=== PATIENT | female | born 1995 | race Caucasian/White ===

== ENCOUNTER 2023-02-20 09:23 | Inpatient (IN) ==
--- NOTE | 2023-02-19 13:25 | Anesthesiology Consultation ---
Date of Service February 19, 2023 Assessment & Plan (1) Encounter for pre-operative examination: Chart Review Chart Review: entry level programmer initiated -Infectious Disease screening: Per PAT nursing assessment on 02/19/23. No known infectious disease contacts in past 10 days or current infectious disease symptoms. No recent travel outside the country. History Surgery Operation Date: 02/26/23 07:30 Proposed Procedures p Section in LD (Twins) - Nicki Badillo MD Height/Weight Height: 5 ft 3 in Weight: 95.254 kg Allergies Allergy/AdvReac Type Severity Reaction Status Date / Time ibuprofen Allergy Intermediate ANAPHYLAXIS Verified 02/19/23 13:02 Penicillins AdvReac Intermediate NAUSEA Verified 02/19/23 13:02 Medications Home Medications Medication Instructions Recorded Confirmed Last Taken guselkumab 100 mg/mL subcutaneous 100 mg subcut MONTHLY 02/04/21 02/19/23 Unknown syringe (Tremfya) levothyroxine 112 mcg tablet 224 mcg PO DAILYBB 02/04/21 02/19/23 Unknown Past Medical History Medical History Hx of papillary thyroid carcinoma dx'd 2017. s/p thyroidectomy Postsurgical hypothyroidism Past Surgical History Surgical History History of total thyroidectomy History of wisdom tooth extraction S/P thyroid biopsy Social History Smoking Status: Never smoker Do You Dip or Chew Tobacco: No Hx Alcohol Use: No Hx Substance Use: No substance use type: does not use Testing Laboratory Results 02/13/23= WBC: 10.51 H/H: 11.0/34.9 PLATELETS: 185 CREATININE: 0.6 TSH: 0.04 FREE T4: 1.2
[~2023-02-20 09:23] MED LIST: CITRIC ACID/SODIUM CITRATE 15 ML UDC PO SCH; LACTATED RINGER'S 1,000 ML IV SCH; ceFAZolin 2,000 MG in SYRINGE 0 ML IV SCH
[2023-02-20] MEDS ORDERED: LACTATED RINGER'S 1,000 ML IV PRN (11:10)
[2023-02-20] MEDS ORDERED: OXYTOCIN 30 UNITS/500 ML BAG IV PRN (11:10)
[2023-02-20 11:36] LABS: Hematocrit (blood only) 33.3 % (37.0-47.0); Hemoglobin 11.1 g/dl (12.0-16.0); Mean Corpuscular Hemoglobin 31.7 pg (25.0-34.0); Mean Corpuscular Hgb Conc 33.3 g/dL (32.0-36.0); Mean Corpuscular Volume 95.1 fL (80.0-100.0); Mean Platelet Volume 10.8 fL (9.4-12.4); Platelet Count 164 K/uL (130-400); RDW Coefficient of Variation 14.6 % (11.5-14.5); RDW Standard Deviation 49.8 fL (36.4-46.3); White Blood Count 10.31 K/ul (4.8-10.8)
[2023-02-20] MEDS ORDERED: SODIUM CHLORIDE 0.9% 250 ML IV PRN (11:56)
--- NOTE | 2023-02-20 12:43 | Labor Progress Brief Note ---
Date of Service February 20, 2023 Subjective Reason For Note: Routine Evaluation Current Pain Level(1-10): 0 Consent for done by me with risks, benefits and alternatives to procedure explained to patient. She is in agreement to proceed with surgery. Assessment & Plan Admission and Anticipated Discharge Date Admission Date: February 20, 2023 Physical Exam Gastrointestinal (Abdomen): Inspection/Auscultation: abdomen normal to inspection Results & Data Vital Signs (Past 12 Hours) Vital Signs Temp Pulse Resp BP 02/20/23 12:00 86 138/88 02/20/23 11:58 37.0 C 86 16 138/88 Laboratory Results 02/20/23 02/20/23 11:17 11:17 WBC 10.31 RBC 3.50 L Hgb 11.1 L Hct 33.3 L MCV 95.1 MCH 31.7 MCHC 33.3 RDW Std Deviation 49.8 H RDW Coeff of Ariel 14.6 H Plt Count 164 MPV 10.8 Crossmatch See Detail Diagnostic Findings Patient scanned at bedside. Vertex/Breech noted.
[2023-02-20] MEDS ORDERED: MoRPHine SULFATE PF 1 MG/ML 10 ML AMP/VIAL ONE (13:32)
[2023-02-20] MEDS ORDERED: MoRPHine SULFATE 2 MG/ML CARP IV PRN (13:47)
[2023-02-20] MEDS ORDERED: NALBUPHINE HCL INJ 10 MG/ML AMP IV PRN (13:47)
[2023-02-20] MEDS ORDERED: NALOXONE HCL 0.08 MG in SYRINGE 1.8 ML IV PRN (13:47)
[2023-02-20] MEDS ORDERED: ePHEDrine sulfate 50 MG/ML AMP IV PRN (13:47)
[2023-02-20] MEDS ORDERED: ONDANSETRON INJ 2 MG/ML 2 ML VIAL IV PRN (13:47)
[2023-02-20] MEDS ORDERED: MoRPHine SULFATE PF 1 MG/ML 10 ML AMP/VIAL INT SPINAL ONE (13:47)
[2023-02-20] MEDS ORDERED: LACTATED RINGER'S 500 ML IV PRN (13:47)
[2023-02-20] MEDS ORDERED: PROMETHAZINE HCL 12.5 MG in SODIUM CHLORIDE 0.9% 50 ML IV PRN (13:47)
[2023-02-20] MEDS ORDERED: NALOXONE HCL 1 MG in SODIUM CHLORIDE 0.9% 1,000 ML IV PRN (13:47)
[2023-02-20] MEDS ORDERED: NALOXONE HCL 0.4 MG/1 ML VIAL/CARP IV PRN (13:47)
[2023-02-20] MEDS ORDERED: DC INTRASPINAL MORPHINE SCH (14:00)
[2023-02-20] MEDS ORDERED: SODIUM CHLORIDE 0.9% 1,000 ML IV SCH (14:00)
[2023-02-20] MEDS ORDERED: NO NARCOTICS OR SEDATIVES SCH (14:00)
[2023-02-20] MEDS ORDERED: PHENYLEPHRINE 100MCG/ML 5ML SYR ONE (14:26)
[2023-02-20] MEDS ORDERED: ePHEDrine sulfate 50 MG/ML AMP ONE (14:26)
[2023-02-20] MEDS ORDERED: SODIUM CHLORIDE 0.9% PF INJ 10 ML VIAL ONE (14:26)
[2023-02-20] MEDS ORDERED: ONDANSETRON INJ 2 MG/ML 2 ML VIAL ONE (14:26)
[2023-02-20] MEDS ORDERED: METOCLOPRAMIDE HCL INJ 5 MG/ML 2 ML VIAL ONE (14:26)
[2023-02-20] MEDS ORDERED: OXYTOCIN 10 UNITS/ML VIAL ONE (14:26)
[2023-02-20] MEDS ORDERED: BENZOCAINE 20% SPRY 85 APPLN/85 GM CAN EXT PRN (14:30)
[2023-02-20] MEDS ORDERED: SENNA 8.6 MG TAB PO PRN (14:30)
[2023-02-20] MEDS ORDERED: MAGNESIUM HYDROXIDE SUSP 30 ML UDC PO PRN (14:30)
[2023-02-20] MEDS ORDERED: HYDROCORTISONE ACETATE 25 MG SUPP PR PRN (14:30)
[2023-02-20] MEDS ORDERED: DIPHTHERIA/TETANUS/PERTUSSIS Vaccine (Tdap, Age 7+yrs) 0.5mL SYR/VL IM ONE (14:30)
--- NOTE | 2023-02-20 14:55 | Post Operative Brief Note ---
Immediate Post Op Note v1 Date of Surgery February 20, 2023 Pre & Post Diagnosis Operation Date: 02/26/23 07:30 <No data on this case meets the specified criteria> I identified the patient and participated in the time-out.: Yes Procedure Operation Date: 02/26/23 07:30 <No data on this case meets the specified criteria> Surgeon Harshad Ozuna MD Monomer Recovery Operator Ayala BULLARD Estimated Blood Loss 600 Findings Consistent with Post-Op Diagnosis Twins at 37 weeks di/di A everett breech 8/9 6# 3.5 oz. B vertex 7/8 6#6 oz. Fluids LR 3000 ml. Specimens placenta Drains Tolliver Catheter (tolliver placed after spinal. draining clear, yellow urine at this time. anesthia monitoring throughout procedure.) Anesthesia Type Spinal Complications none Disposition Accompanied Patient To Recovery: Yes Overlapping Procedure I was present for: the critical portions of procedure. I was immediately available: during the entire case. Back up surgeon: was not required during procedure.
--- NOTE | 2023-02-20 15:01 | Operative Report ---
Post Operative Report Pre & Post Diagnosis Operation Date: 02/26/23 07:30 <No data on this case meets the specified criteria> I identified the patient and participated in the time-out.: Yes Procedure Operation Date: 02/26/23 07:30 <No data on this case meets the specified criteria> Surgeon Harshad Ozuna MD Nurse Substance Abuse Ayala BULLARD Estimated Blood Loss 600 Findings Consistent with Post-Op Diagnosis Twin A everett breech Apgars 8 9 6 pounds 3-1/2 ounces twin B vertex 7 8 6 pounds 6 ounces di/di twins at 37.1 weeks Fluids 3000 ml. LR Specimens placenta Drains Harper Anesthesia Type Spinal Complications None Disposition Accompanied Patient To Recovery: Yes Indications Twins with gestational hypertension Description of Procedure Under satisfactory spinal anesthesia the patient was prepped draped usual sterile fashion a timeout was called prior to the start of procedure the patient received 2 g of Ancef prior to the start of the procedure as well. A low Pfannenstiel incision was then made carried the incision down into his subsequent successive layers of the abdomen upon reaching the peritoneal cavity the peritoneum was opened this was extended in the AP diameter a low segment transverse incision with the bladder flap being made incision was widened in the AP diameter the amniotic sac was nicked for baby A was found to be clear baby A was found to be in the everett breech presentation delivery was successful with Apgars of 8 and 9 the cord was doubly clamped and cut baby handed to parking meter installer present for the delivery. Baby B was found to be in the vertex presentation the head was down with fundal pressure the amniotic sac was nicked clear fluid was noted the infant was then delivered without any incident the cord was doubly clamped and cut baby handed to parking meter installer Apgars 7 and 8 weight 6 pounds 6 ounces [place]ali clamps were on baby A and Louie clamps were on baby B and the placenta was then delivered spontaneously and intact and then cords were then tagged for AMB. Ring forceps were then placed on both angles the inferior margin of the ring was then used to dilate the cervix after the uterus was exteriorized the uterus was cleaned of all clots and debris with lap pad uterus was closed in double layer closure with 0 Vicryl suture in a continuo us interlocking locking fashion followed by a second imbricating suture. Tubes ovaries bilaterally were found to be within normal limits no active bleeding was noted the lower uterine segment segment was inspected the initial sponge and instrument count were found to be correct. Following this after the uterus was placed back the fascia the muscle was then reapproximated with 2 [id number] sutures of 0 Vicryl suture and then the fascia was then reapproximated from both ends using 0 Vicryl suture. Incision was then irrigated the subcuticular layer was then closed with 3-0 plain suture interrupted. Followed by 4-0 Monocryl suture and Steri-Strips and Telfa and ABD dressing. The final sponge and instrument count were found to be correct estimated blood loss 600 mL total fluids 3000 mL urine output was 100 mL clear. I attest to the content of the Intraoperative Record and any orders documented therein. Any exceptions are noted below. Please note that Ayala Bermeo was needed for retraction assistance at delivery help with closure of the uterus and the abdomen.
[2023-02-20] MEDS ORDERED: ACETAMINOPHEN 500 MG TAB PO ONE (16:56)
--- NOTE | 2023-02-20 17:17 | Anesthesiology Progress Note ---
Date of Service February 20, 2023 Anesthesia Post Procedure Vital Signs Vital Signs: Temp Pulse Resp BP Pulse Ox 02/20/23 16:15 79 16 140/75 100 02/20/23 15:45 92 H 22 126/68 99 02/20/23 15:35 95 H 20 129/69 98 02/20/23 15:25 104 H 20 128/71 97 02/20/23 15:15 99 H 16 127/66 97 02/20/23 15:05 102 H 16 122/64 98 02/20/23 14:55 91 H 16 116/74 100 02/20/23 14:45 36.5 C 18 02/20/23 16:55 100 H 145/86 H 02/20/23 16:53 106 H 98 02/20/23 16:48 99 H 100 02/20/23 16:45 95 H 141/86 H 92 02/20/23 16:43 98 H 100 02/20/23 16:38 99 02/20/23 16:38 104 H 02/20/23 16:38 93 H 89 L 02/20/23 16:35 100 H 134/74 02/20/23 16:33 93 H 100 02/20/23 16:28 95 H 100 02/20/23 16:25 108 H 134/74 02/20/23 16:23 97 H 100 02/20/23 16:18 96 H 100 02/20/23 16:15 79 140/75 02/20/23 16:13 97 H 99 02/20/23 16:08 101 H 100 02/20/23 16:05 98 H 137/77 02/20/23 16:03 93 H 99 02/20/23 15:58 95 H 99 02/20/23 15:55 93 H 121/64 02/20/23 15:53 91 H 99 02/20/23 15:48 99 02/20/23 15:48 90 02/20/23 15:48 91 H 126/68 02/20/23 15:43 97 H 97 02/20/23 15:38 84 98 02/20/23 15:35 95 H 129/69 02/20/23 15:33 96 H 97 02/20/23 15:28 96 H 96 02/20/23 15:25 100 H 128/71 09/07/23 15:23 105 H 96 02/20/23 15:18 94 H 97 02/20/23 15:15 99 H 127/66 02/20/23 15:13 101 H 97 02/20/23 15:08 89 97 02/20/23 15:05 82 122/64 02/20/23 15:03 84 97 02/20/23 14:58 78 100 02/20/23 14:59 81 104/57 L 02/20/23 14:54 91 H 116/74 02/20/23 14:53 86 100 02/20/23 14:51 90 90 02/20/23 14:48 83 100 02/20/23 14:49 81 127/61 02/20/23 14:44 83 130/58 L 02/20/23 14:43 88 100 02/20/23 12:00 86 138/88 02/20/23 11:58 37.0 C 86 16 138/88 Pain Intensity Lower Medial Abdomen: Pain Intensity: 2 Transfer of Care Handoff Completed per policy Notes Mental Status: alert / awake / arousable Patient Amnestic to Procedure: Yes Nausea / Vomiting: adequately controlled Pain: adequately controlled Airway Patency, RR, SpO2: stable & adequate BP & HR: stable & adequate Hydration State: stable & adequate Neuraxial Anesthesia: was administered and sensory block is resolving Anesthetic Complications: no major complications apparent
[2023-02-20] MEDS: SIMETHICONE 80 MG CHEW PO SCH ×2 (20:33)
[2023-02-20] MEDS: DOCUSATE SODIUM 100 MG CAP PO SCH (20:33)
[2023-02-20] MEDS: diphenhydrAMINE 50 MG/ML VIAL IV PRN (20:54)
[2023-02-20] MEDS: OXYTOCIN 20 UNITS in LACTATED RINGER'S 1,000 ML IV SCH (21:42)
[2023-02-20] MEDS ORDERED: Nursing to Pharmacy Communication SCH (21:45)
[2023-02-21] MEDS: diphenhydrAMINE 50 MG/ML VIAL IV PRN (05:08)
[2023-02-21] MEDS: LEVOTHYROXINE SODIUM 112 MCG TABLET PO SCH (05:08)
[2023-02-21] MEDS: OXYTOCIN 20 UNITS in LACTATED RINGER'S 1,000 ML IV SCH (05:15)
[2023-02-21] MEDS ORDERED: LEVOTHYROXINE SODIUM 112 MCG TABLET PO SCH (06:30)
[2023-02-21 06:50] LABS: Basophils # (auto) 0.01 K/uL (0.00-0.20); Basophils % (auto) 0.1 %; Eosinophils # (auto) 0.09 K/uL (0.00-0.50); Eosinophils % (auto) 0.9 %; Immature Granulocytes # (auto) 0.12 K/uL (0.01-0.20); Immature Granulocytes % (auto) 1.2 %; Lymphocytes # (auto) 0.69 K/uL (1.20-3.40); Lymphocytes % (auto) 6.7 %; Mean Corpuscular Hemoglobin 31.6 pg (25.0-34.0); Mean Corpuscular Hgb Conc 33.3 g/dL (32.0-36.0); Mean Corpuscular Volume 94.7 fL (80.0-100.0); Mean Platelet Volume 10.7 fL (9.4-12.4); Monocytes # (auto) 0.84 K/uL (0.11-0.59); Monocytes % (auto) 8.2 %; Neutrophils # (auto) 8.52 K/uL (1.40-6.50); Neutrophils % (auto) 82.9 %; Platelet Count 129 K/uL (130-400); RDW Coefficient of Variation 14.6 % (11.5-14.5); RDW Standard Deviation 50.2 fL (36.4-46.3); Red Blood Count 2.85 M/uL (4.20-5.40); White Blood Count 10.27 K/ul (4.8-10.8)
[2023-02-21] MEDS ORDERED: PROMETHAZINE HCL 25 MG in SODIUM CHLORIDE 0.9% 50 ML IV PRN (07:48)
[2023-02-21] MEDS ORDERED: diphenhydrAMINE Capsule 25 MG CAP PO PRN (07:48)
[2023-02-21] MEDS ORDERED: MEPERIDINE HCL 50 MG/ML CARP IV PRN (07:48)
[2023-02-21] MEDS ORDERED: ONDANSETRON INJ 2 MG/ML 2 ML VIAL IV PRN (07:48)
[2023-02-21] MEDS ORDERED: diphenhydrAMINE 50 MG/ML VIAL IV PRN (07:48)
[2023-02-21] MEDS ORDERED: FERROUS SULFATE 325 MG TAB PO SCH (08:00)
[2023-02-21] MEDS: SIMETHICONE 80 MG CHEW PO SCH ×4 (08:29→20:34)
[2023-02-21] MEDS: DOCUSATE SODIUM 100 MG CAP PO SCH ×2 (08:29→20:34)
[2023-02-21] MEDS: PRENATAL VITAMIN 1 TAB PO SCH (08:29)
--- NOTE | 2023-02-21 09:03 | Obstetrical Progress Note ---
Date of Service February 21, 2023 Assessment & Plan Admission and Anticipated Discharge Date Admission Date: February 20, 2023 Subjective Patient is seen and examined. She feels well, no complaints. Pain is under control with oral meds. Ambulated once without dizziness Has not Voided yet Tolerating regular diet with out N&V Flatus + BM none Bleeding is minimal No fever/ chills/ CP/ SOB/ N&V/ Leg pain Breast and bottle feeding twins without problems Vital Signs Temp Pulse Pulse Resp BP Pulse Ox O2 Del Method 02/21/23 06:24 18 92 02/21/23 04:30 36.7 C 108 H 16 120/80 96 Room Air 02/21/23 04:40 16 94 02/21/23 03:40 18 97 02/21/23 02:40 16 97 02/21/23 00:25 37.3 C 103 H 16 120/76 97 Room Air 02/21/23 01:40 18 97 02/21/23 00:40 16 93 02/20/23 23:40 16 95 02/20/23 22:40 18 96 02/20/23 21:40 16 95 Lab Results 02/20/23 02/20/23 02/21/23 Range/Units 11:17 11:17 05:20 WBC 10.31 10.27 (4.8-10.8) K/ul RBC 3.50 L 2.85 L (4.20-5.40) M/uL Hgb 11.1 L 9.0 L (12.0-16.0) g/dl Hct 33.3 L 27.0 L (37.0-47.0) % MCV 95.1 94.7 (80.0-100.0) fL MCH 31.7 31.6 (25.0-34.0) pg MCHC 33.3 33.3 (32.0-36.0) g/dL RDW Std Deviation 49.8 H 50.2 H (36.4-46.3) fL RDW Coeff of Ariel 14.6 H 14.6 H (11.5-14.5) % Plt Count 164 129 L (130-400) K/uL MPV 10.8 10.7 (9.4-12.4) fL Immature Gran % (Auto) 1.2 % Neut % (Auto) 82.9 % Lymph % (Auto) 6.7 % [place] % (Auto) 8.2 % Eos % (Auto) 0.9 % Baso % (Auto) 0.1 % Neut # (Auto) 8.52 H (1.40-6.50) K/uL Lymph # (Auto) 0.69 L (1.20-3.40) K/uL [place] # (Auto) 0.84 H (0.11-0.59) K/uL Eos # (Auto) 0.09 (0.00-0.50) K/uL Baso # (Auto) 0.01 (0.00-0.20) K/uL Immature Gran # (Auto) 0.12 (0.01-0.20) K/uL Blood Type A Negative Antibody Screen POSITIVE A Antibody Identification Anti-D due to RhIg Crossmatch See Detail PE: General: Alert, orientedx3, NAD CVS: S1S2 RRR Lungs; CTAB Abd: soft, NT, BS+, fundus firm, below Umbilicus Incision/ Dressing: Clean, dry, intact Perineum intact, Lochia rubra minimal Ext; NT, +1/+1 edema AP: 27 yo s/p C Section for twins and GHT, pod# 1 VSS Afebrile doing well Continue routine postop care Encourage ambulation, PO intake All questions were answered Results & Data Vital Signs (Past 12 Hours) Vital Signs Temp Pulse Pulse Resp BP Pulse Ox O2 Del Method 02/21/23 06:24 18 92 02/21/23 04:30 36.7 C 108 H 16 120/80 96 Room Air 02/21/23 04:40 16 94 02/21/23 03:40 18 97 02/21/23 02:40 16 97 02/21/23 00:25 37.3 C 103 H 16 120/76 97 Room Air 02/21/23 01:40 18 97 02/21/23 00:40 16 93 02/20/23 23:40 16 95 02/20/23 22:40 18 96 02/20/23 21:40 16 95
[2023-02-21] MEDS: FERROUS SULFATE 325 MG TAB PO SCH ×2 (09:33→23:25)
[2023-02-21] MEDS: oxyCODONE/ACETAMINOPHEN 5mg/325mg TAB PO PRN ×2 (13:03→19:26)
[2023-02-21] MEDS ORDERED: bisacodyL 5 MG TABEC PO SCH (20:00)
[2023-02-22] MEDS: oxyCODONE/ACETAMINOPHEN 5mg/325mg TAB PO PRN ×4 (02:30→17:29)
[2023-02-22] MEDS: LEVOTHYROXINE SODIUM 112 MCG TABLET PO SCH (06:27)
[2023-02-22 06:30] LABS: Hematocrit (blood only) 28.1 % (37.0-47.0); Hemoglobin 9.1 g/dl (12.0-16.0)
--- NOTE | 2023-02-22 09:02 | Obstetrical Progress Note ---
Date of Service February 22, 2023 Subjective Ambulation: ambulating normally Voiding: no voiding problems Passing Gas:: Yes Diet Tolerance:: regular diet Lochia:: Small Feeding Type:: breast feeding Current Pain Level(1-10): 0 doing well Physical Exam Constitutional WD/WN, vitals as above Gastrointestinal (Abdomen) Inspection/Auscultation: abdomen normal to inspection and + abdominal surgical incision incision c/d/i Musculoskeletal Extremities: extremities normal to inspection Skin no rashes, warm and dry Neurologic patellar DTR's 2+ bilat, sensation intact Psychiatric A+Ox3, euthymic affect Results & Data Vital Signs (Past 12 Hours) Vital Signs Temp Pulse Pulse Resp BP Pulse Ox O2 Del Method 02/22/23 07:50 36.9 C 98 H 16 134/91 98 Room Air 02/21/23 23:30 Room Air 02/21/23 23:11 37.3 C 101 H 20 126/80 99 Room Air Laboratory Results Laboratory Results - last 72 hr 02/20/23 02/20/23 02/21/23 11:17 11:17 05:20 WBC 10.31 10.27 RBC 3.50 L 2.85 L Hgb 11.1 L 9.0 L Hct 33.3 L 27.0 L MCV 95.1 94.7 MCH 31.7 31.6 MCHC 33.3 33.3 RDW Std Deviation 49.8 H 50.2 H RDW Coeff of Ariel 14.6 H 14.6 H Plt Count 164 129 L MPV 10.8 10.7 Immature Gran % (Auto) 1.2 Neut % (Auto) 82.9 Lymph % (Auto) 6.7 [place] % (Auto) 8.2 Eos % (Auto) 0.9 Baso % (Auto) 0.1 Neut # (Auto) 8.52 H Lymph # (Auto) 0.69 L [place] # (Auto) 0.84 H Eos # (Auto) 0.09 Baso # (Auto) 0.01 Immature Gran # (Auto) 0.12 Blood Type A Negative Antibody Screen POSITIVE A Antibody Identification Anti-D due to RhIg Screen Crossmatch See Detail 02/21/23 02/22/23 08:22 06:06 WBC RBC Hgb 9.1 L Hct 28.1 L MCV MCH MCHC RDW Std Deviation RDW Coeff of Ariel Plt Count MPV Immature Gran % (Auto) Neut % (Auto) Lymph % (Auto) [place] % (Auto) Eos % (Auto) Baso % (Auto) Neut # (Auto) Lymph # (Auto) [place] # (Auto) Eos # (Auto) Baso # (Auto) Immature Gran # (Auto) Blood Type A Negative Antibody Screen Cancelled Antibody Identification Screen Negative Crossmatch
[2023-02-22] MEDS: SIMETHICONE 80 MG CHEW PO SCH ×4 (09:20→20:38)
[2023-02-22] MEDS: DOCUSATE SODIUM 100 MG CAP PO SCH ×2 (09:21→20:38)
[2023-02-22] MEDS: PRENATAL VITAMIN 1 TAB PO SCH (09:21)
[2023-02-22] MEDS: FERROUS SULFATE 325 MG TAB PO SCH ×2 (09:21→20:38)
[2023-02-22] MEDS ORDERED: bisacodyL 10 MG SUPP PR PRN (14:30)
[2023-02-22] MEDS: LACTATED RINGER'S 1,000 ML IV SCH (20:37)
[2023-02-23] MEDS: LACTATED RINGER'S 1,000 ML IV SCH (02:28)
[2023-02-23] MEDS: LEVOTHYROXINE SODIUM 112 MCG TABLET PO SCH (06:38)
[2023-02-23] MEDS: oxyCODONE/ACETAMINOPHEN 5mg/325mg TAB PO PRN ×2 (06:38→12:24)
[2023-02-23] MEDS: PRENATAL VITAMIN 1 TAB PO SCH (09:17)
[2023-02-23] MEDS: SIMETHICONE 80 MG CHEW PO SCH ×2 (09:17→12:24)
[2023-02-23] MEDS: DOCUSATE SODIUM 100 MG CAP PO SCH (09:17)
[2023-02-23] MEDS: FERROUS SULFATE 325 MG TAB PO SCH (09:17)
--- NOTE | 2023-02-23 10:52 | Obstetrical Progress Note ---
Date of Service February 23, 2023 Subjective Ambulation: ambulating normally Voiding: no voiding problems Passing Gas:: Yes Diet Tolerance:: regular diet Lochia:: Small Feeding Type:: breast feeding Current Pain Level(1-10): 0 doing well Physical Exam Constitutional WD/WN, vitals as above Gastrointestinal (Abdomen) Inspection/Auscultation: abdomen normal to inspection and + abdominal surgical incision incision c/d/i Musculoskeletal Extremities: extremities normal to inspection Skin no rashes, warm and dry Neurologic patellar DTR's 2+ bilat, sensation intact Psychiatric A+Ox3, euthymic affect Results & Data Vital Signs (Past 12 Hours) Vital Signs Temp Pulse Resp BP Pulse Ox O2 Del Method 02/23/23 07:35 37.1 C 96 H 16 122/77 98 Room Air 02/23/23 00:15 137/83 02/22/23 22:54 37 C 91 H 18 145/92 H 98 Room Air Laboratory Results 02/20/23 02/20/23 02/21/23 11:17 11:17 05:20 WBC 10.31 10.27 RBC 3.50 L 2.85 L Hgb 11.1 L 9.0 L Hct 33.3 L 27.0 L MCV 95.1 94.7 MCH 31.7 31.6 MCHC 33.3 33.3 RDW Std Deviation 49.8 H 50.2 H RDW Coeff of Ariel 14.6 H 14.6 H Plt Count 164 129 L MPV 10.8 10.7 Immature Gran % (Auto) 1.2 Neut % (Auto) 82.9 Lymph % (Auto) 6.7 [place] % (Auto) 8.2 Eos % (Auto) 0.9 Baso % (Auto) 0.1 Neut # (Auto) 8.52 H Lymph # (Auto) 0.69 L [place] # (Auto) 0.84 H Eos # (Auto) 0.09 Baso # (Auto) 0.01 Immature Gran # (Auto) 0.12 Blood Type A Negative Antibody Screen POSITIVE A Antibody Identification Anti-D due to RhIg Screen Crossmatch See Detail 02/21/23 02/22/23 08:22 06:06 WBC RBC Hgb 9.1 L Hct 28.1 L MCV MCH MCHC RDW Std Deviation RDW Coeff of Ariel Plt Count MPV Immature Gran % (Auto) Neut % (Auto) Lymph % (Auto) [place] % (Auto) Eos % (Auto) Baso % (Auto) Neut # (Auto) Lymph # (Auto) [place] # (Auto) Eos # (Auto) Baso # (Auto) Immature Gran # (Auto) Blood Type A Negative Antibody Screen Cancelled Antibody Identification Screen Negative Crossmatch
== END 2023-02-23 14:50 | disposition home or self-care (01) | DRG 788 ==
LOC: 4S1 10:52 → 4E2 18:00 → EDSTATUS 02-26 09:05